=== PATIENT | male | born 1960 | race Caucasian/White ===

== ENCOUNTER → 2017-01-25 | Outpatient (CLI) | payer OTHER ==
--- NOTE | 2017-01-25 09:53 | CTL ---
EXAMINATION TYPE: CT Low Dose Lung DATE OF EXAM ORDERED: 01/25/2017 COMPARISON: None HISTORY: . Low Dose CT Lung Screening CT DLP: 75.[address] CTDI: 2.14 mGy IV CONTRAST USED: None. SCREENING VISIT: First visit COMPARISON: None. TECHNIQUE: Low dose computed tomography scan was performed through the chest at 1 millimeter thick se ctions and reconstructed images in the coronal plane at [address] DIAGNOSTIC QUALITY: Satisfactory FINDINGS: LUNG NODULES: Right lung: Solid nodule measuring 4.6 mm within the periphery of the right lower lobe image 219. Add itional right upper lobe pulmonary nodule measuring 5 mm image 125. Left lun.4 mm solid nodule left upper lobe image 112. Ill-defined margin suggested. No additional nodules identified. LUNGS: COPD: Severity: Mild Fibrosis: Severity:None Lymph nodes: None Other findings: None RIGHT PLEURAL SPACE: Effusion: None Calcification: None Thickening: None Pneumothorax: None LEFT PLEURAL SPACE: Effusion: None Calcification: None Thickening: None Pneumothorax: None HEART: Heart Size: Within normal limits Coronary calcification: Mild Pericardial effusion: None OTHER FINDINGS: Upper abdomen: No significant abnormality Bony thorax: Degenerative changes Supraclavicular region: No significant abnormalityOther: No significant abnormalityI IMPRESSION: Suspicious category 4B RECOMMENDATION: Further evaluation with PET/CT to exclude malignancy CT LUNG RAD: LUNG RAD CATEGORY 4B
== END | disposition home or self-care (01) ==
LOC: RADCTMAIN 09:08
PROVIDERS: ATTEND Family Medicine
DX: Z12.2 Encounter for screening for malignant neoplasm of respiratory organs (principal); F17.200 Nicotine dependence, unspecified, uncomplicated

== ENCOUNTER → 2017-02-06 | Outpatient (CLI) | payer OTHER | END | disposition home or self-care (01) | LOC: RADPETMAIN 08:07 | PROVIDERS: ATTEND Family Medicine | DX: R91.1 Solitary pulmonary nodule (principal) ==

== ENCOUNTER → 2017-02-13 | Outpatient (CLI) | payer OTHER ==
--- NOTE | 2017-02-13 12:38 | PE ---
EXAMINATION TYPE: PET CT fusion skull to thigh DATE OF EXAM: 02/13/2017 CLINICAL HISTORY: Solitary pulmonary nodule, abnormal recent CT. TECHNIQUE: Following the intravenous administration of 11.94 mCi of F-18 FDG, whole body images are performed from the skull base to the midthigh. Images are reviewed on the computer in the coronal, axial, and sagittal planes. Reconstructed rotating images are created on independent workstation and reviewed on the computer. A non-contrast CT is performed in conjunction with the PET scan. COMPARISON: Low-dose lung screening CT January 25, 2017. CT abdomen and pelvis July 22, 2011. FINDINGS: SKULL BASE AND NECK: There is nonspecific 1.1 x 0.9 cm lymph node in the left neck and axial image 3 8 at level of left hyoid bone with max SUV of 3.03. CHEST, MEDIASTINUM, AND HILAR REGION: There is background of mild to moderate emphysematous change wi th prominent in the lung apices. Corresponding to recent CT there is stable 8 x 5 mm nodule in the le ft upper lobe on axial image 85 without abnormal hypermetabolic uptake. Fishes hypermetabolic uptake is seen in the thorax. ABDOMEN AND PELVIS: No suspicious hypermetabolic uptake is seen in the abdomen or pelvis. OSSEOUS STRUCTURES: No suspicious hypermetabolic uptake is seen in osseous structures. OTHER CT: There are prominent but subcentimeter lymph nodes in the prevascular space, AP window, and pericarinal regions. Coronary artery calcification is present which is noted marker for coronary artery disease. Prominent multilevel facet arthropathy in the lower lumbar spine. There is multilevel spurring in the thoracolumbar spine. There is marked straightening of the thoracolumbar spine. There is multilevel v acuum disc phenomenon and disc space narrowing in the lumbar spine. There is left lateral hernia in the mid abdomen on axial image 177 containing fat and small mesenteri c vessels through the rectus muscle perhaps site of prior ostomy. Sutures near sigmoid rectal colon prior partial bowel resection in the pelvis on axial image 206 are noted. IMPRESSION: 1. No suspicious hypermetabolic uptake in thorax or 8 x 5 mm left upper lobe nodule. Advise CT follow -up in 6-12 months time as per 2017 modified Fleischner Society recommendations. 2. Nonspecific hypermetabolic 1.1 x 0.9 cm left neck lymph node. Advise contrast-enhanced neck CT cor relation and ENT referral.
== END | disposition home or self-care (01) ==
LOC: RADPETMAIN 09:54
PROVIDERS: ATTEND Family Medicine
DX: R91.1 Solitary pulmonary nodule (principal)
CPT/HCPCS: 78815; A9552

== ENCOUNTER → 2017-08-02 | Outpatient (CLI) | payer OTHER ==
--- NOTE | 2017-08-02 12:45 | CT ---
EXAMINATION TYPE: CT soft tissue neck w con DATE OF EXAM: 08/02/2017 HISTORY: Lt Neck Nodule COMPARISON: PET/CT February 13, 2017 CT DLP: 766 mGycm. Automated Exposure Control for Dose Reduction was Utilized. TECHNIQUE: CT scan of the neck is performed with IV Contrast, patient injected with 100 mL of Omnipa que 300, axial images are obtained, coronal and sagittal reformatted images are reviewed. FINDINGS: Airway: Mild to moderate underlying emphysematous change is present. Parotid/submandibular glands: No gross abnormality seen. Carotid/Vascular Structures: No significant plaque or stenosis at the carotid bulb level bilaterally Osseous Structures: There is mild to moderate disc space narrowing C3-C4, C5-C6, and C6-C7 levels wit h mild to moderate anterior spurring noted at latter 2 levels. Other: No suspicious greater than 1 cm neck adenopathy is seen. There are prominent but subcentimeter bilateral neck lymph nodes identified. Corresponding to PET/CT there is stable 7 x 7 mm lymph node a nterior to jugular and carotid vessels at level of hyoid bone axial image 39. IMPRESSION: Stable nonspecific subcentimeter left-sided neck lymph node. No new greater than 1 cm mas s or adenopathy clearly identified.
== END | disposition home or self-care (01) ==
LOC: RADCTMAIN 11:07
PROVIDERS: ATTEND Family Medicine
DX: R22.1 Localized swelling, mass and lump, neck (principal)
CPT/HCPCS: 70491; Q9967

== ENCOUNTER → 2018-06-10 | Outpatient (CLI) | payer OTHER ==
--- NOTE | 2018-06-10 10:26 | CT ---
EXAMINATION TYPE: CT chest w con DATE OF EXAM: 06/10/2018 COMPARISON: Prior chest CT low dose lung screening January 25, 2017 HISTORY: Previous abn exam CT DLP: 555 mGycm. Automated Exposure Control for Dose Reduction was Utilized. TECHNIQUE: CT scan of the thorax is performed following with IV Contrast, patient injected with 100 mL of Isovue 300. FINDINGS: LUNGS: Background mild to moderate underlying emphysematous change most prominent lung apices is rede monstrated. There is stable left upper lobe nodule axial image 29 and coronal image 52 measuring 4 x 4 millimeters current study axial image 29, stable or slightly diminished in size from prior study. T here is peripheral 4 x 3 mm right lower lobe nodule axial image 47 also slightly diminished in size f rom prior study. No new suspicious greater than 4 mm nodules or masses are evident. No pleural effusi on or pneumothorax is seen bilaterally. Mild to moderate central peribronchial wall thickening is pre sumed product of underlying COPD. MEDIASTINUM: There are no greater than 1 cm hilar or mediastinal lymph nodes. No cardiomegaly or pe ricardial effusion is seen. OTHER: Moderate multilevel spurring in the thoracic spine is present. There is nonspecific 9 mm hyper dense focus left hepatic lobe axial image 59 favoring benign etiology or flash filling hemangioma. Th is is not clearly seen on [address] IMPRESSION: 1. Mild to moderate emphysematous change with scattered nodules stable or diminished in size from steven or CT. No new suspicious nodules are seen. Findings are strongly favored postinflammatory.
== END | disposition home or self-care (01) ==
LOC: RADCTMAIN 08:05
PROVIDERS: ATTEND Family Medicine
DX: J43.9 Emphysema, unspecified (principal); R91.8 Other nonspecific abnormal finding of lung field
CPT/HCPCS: 71260; Q9967

== ENCOUNTER → 2020-08-13 | Outpatient (CLI) | payer MEDICARE ==
--- NOTE | 2020-08-13 09:44 | MR ---
EXAMINATION TYPE: MR iac wo/w con DATE OF EXAM: 08/13/2020 COMPARISON: None HISTORY: Acoustic nerve disorder, left-sided hearing loss TECHNIQUE: Multiplanar, multisequence images of the brain and brainstem is performed with small soxxs-po-pyne an d high resolution images through the internal auditory canals without and with IV contrast, utilizing 8.5 mL intravenous Gadavist . FINDINGS: Diffusion weighted images demonstrate no evidence of a recent infarct or other diffusion ab normality. There is no extra-axial fluid collection, there is some artifact present, some scattered periventricular hyperintensity is present on inversion recovery T2-weighted sequences, approximately 3-5 lesions. The ventricular system and cisternal spaces are normal in size and appearance. The bra in volume is age appropriate. 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 There is no cerebellopontine angle mass. No abnormal soft tissue or enhancement within the internal auditory canals The craniocervical junction appears within normal limits. Post contrast images demonstrate no abnormal enhancement. The dural venous sinuses appear patent. The visualized s inuses are remarkable for only mucoperiosteal thickening in the frontal sinus, ethmoid air cells, max illary and sphenoid sinuses, and the globes are intact. IMPRESSION: Mild mucosal disease in the paranasal sinuses. No internal auditory canal or cerebellopon jacy angle abnormality is evident. Nonspecific white matter demyelination of questionable clinical si gnificance, Thornwaldt cyst.
== END ==
LOC: RADMRIMAIN 08:05
PROVIDERS: ATTEND Otolaryngology
DX: J34.89 Other specified disorders of nose and nasal sinuses (principal)
CPT/HCPCS: 70553

== ENCOUNTER → 2020-09-10 | Outpatient (CLI) | payer MEDICARE ==
--- NOTE | 2020-09-10 14:19 | CTL ---
EXAMINATION TYPE: CT Low Dose Lung DATE OF EXAM ORDERED: 09/10/2020 HISTORY: Tobacco use. Lung cancer screening CT DLP: [address] CTDI: 3.3 mGy Automated exposure control for dose reduction was used. SCREENING VISIT: Subsequent follow-up COMPARISON: 01/25/2017 TECHNIQUE: Low dose computed tomography scan was performed through the chest at 1 mm thick sections a nd reconstructed images in the coronal plane at [address] DIAGNOSTIC QUALITY: Satisfactory FINDINGS: LUNG NODULES: Present, detailed below: Left lung: There is a new 0.5 cm nodule within the periphery of the upper medial left lung. Series 4 image 72. Previous left upper lobe nodule not apparent on the current exam. Right lung: Previous nodule appears smaller currently measures 0.3 cm in the periphery of the right u pper lung field. Series 4 image 121. LUNGS: COPD: Severity: Mild. Peribronchial thickening compatible some chronic bronchitis is present. Fibrosis: Severity: None Lymph nodes: None Other findings: None RIGHT PLEURAL SPACE: Effusion: None Calcification: None Thickening: None Pneumothorax: None LEFT PLEURAL SPACE: Effusion: None Calcification: None Thickening: None Pneumothorax: None HEART: Heart Size: Normal Coronary calcification: Minimal Pericardial effusion: None OTHER FINDINGS: Upper abdomen: Normal Bony thorax: Normal Supraclavicular region: Normal Other: Ascending thoracic aorta at the level the main pulmonary artery measures 3.6 cm. The main pul monary artery at the bifurcation measures 2.7 cm. IMPRESSION: Probably benign findings FOLLOW UP CT CHEST RECOMMENDATION: Follow up standard CT chest 6 months to reevaluate new left upper lobe lung nodule. CT LUNG RAD: 3
== END | disposition home or self-care (01) ==
LOC: RADCTMAIN 08:02
PROVIDERS: ATTEND Family Medicine
DX: Z12.2 Encounter for screening for malignant neoplasm of respiratory organs (principal); F17.210 Nicotine dependence, cigarettes, uncomplicated
CPT/HCPCS: 71271

== ENCOUNTER → 2022-01-01 | Outpatient (CLI) | payer MEDICARE ==
--- NOTE | 2022-01-01 14:13 | CTL ---
EXAMINATION TYPE: CT Low Dose Lung DATE OF EXAM ORDERED: 01/01/2022 HISTORY: History of smoking. Lung cancer screening CT DLP: 102.[address] CTDI: 2.9 mGy Automated exposure control for dose reduction was used. SCREENING VISIT: Follow-up screening visit COMPARISON: 09/10/2020 TECHNIQUE: Low dose computed tomography scan was performed through the chest at 1 mm thick sections a nd reconstructed images in multiple planes at 1 mm and [address] DIAGNOSTIC QUALITY: Satisfactory FINDINGS: LUNG NODULES: Present, detailed below: Prior pulmonary nodules are stable example includes: 3 mm right upper lobe image 99, series 4, right lower lobe 6 mm image 193, left upper lobe 5 mm image 98, and right upper lobe 4 mm image 54. LUNGS: COPD: Severity: Mild Fibrosis: Severity: None Lymph nodes: None Other findings: None RIGHT PLEURAL SPACE: Effusion: None Calcification: None Thickening: None Pneumothorax: None LEFT PLEURAL SPACE: Effusion: None Calcification: None Thickening: None Pneumothorax: None HEART: Heart Size: Normal Coronary Calcification: Small Pericardial Effusion: None OTHER FINDINGS: Upper abdomen: None Bony thorax: None Supraclavicular region: None Other: None IMPRESSION: 1. Stable scattered pulmonary nodules. 2. Mild to moderate COPD CT LUNG RAD AND CT CHEST RECOMMENDATION: Lung-Rad 2 Benign Appearance or Behavior: Continue annual sc reening with LDCT in 12 months. S Modifier (other clinically significant findings): None
== END | disposition home or self-care (01) ==
LOC: RADCTMAIN 13:01
PROVIDERS: ATTEND Nurse Practitioner Family
DX: Z12.2 Encounter for screening for malignant neoplasm of respiratory organs (principal); R91.8 Other nonspecific abnormal finding of lung field; J44.9 Chronic obstructive pulmonary disease, unspecified; Z87.891 Personal history of nicotine dependence
CPT/HCPCS: 71271

== ENCOUNTER → 2022-12-02 | Outpatient (CLI) | payer MEDICARE ==
--- NOTE | 2022-12-02 12:44 | CTL ---
EXAMINATION TYPE: CT Low Dose Lung DATE OF EXAM ORDERED: 12/02/2022 HISTORY: 62-year-old male Z87.891. Lung cancer screening. Current smoker, 45 pack-year history. CT DLP: [address] CTDI: 2.8 mGy Automated exposure control for dose reduction was used. SCREENING VISIT: 01/01/2022 COMPARISON: 01/01/2022 TECHNIQUE: Low dose computed tomography scan was performed through the chest with coronal and sagitta l reconstructions. CT DIAGNOSTIC QUALITY: Satisfactory FINDINGS: Heart normal size without pericardial effusion. Mild LAD and circumflex coronary artery calcification s are present. 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 Conventional chest branching anatomy. Scattered nonenlarged mediastinal lymph nodes remain unchanged. No thoracic lymphadenopathy by CT siz e criteria. Moderate centrilobular emphysema and some paraseptal emphysema in the visualized upper lungs. Mild di ffuse bronchial wall thickening. A number of 6 mm and smaller bilateral pulmonary nodules are redemonstrated, unchanged. However, there are five new pulmonary nodules in the left upper lobe (circled on the images). These r sebastien in size from 1.4 cm axial image 51 and 9 mm on axial image 110 down to 5 mm. Visualized upper abdomen shows no gross abnormality. Bones: DISH lower thoracic spine with moderate degenerative disc disease. IMPRESSION: 1. LungRADS Category 4B (very suspicious, >15% chance of malignancy). New pulmonary nodules in the le ft upper lobe measuring up to 1.4 cm. Consider further PET CT evaluation. 2. COPD with moderate emphysema and other stable 6 mm and smaller pulmonary nodules. CT LUNG RAD AND CT CHEST RECOMMENDATION: Lung-Rad 4B or 4X Very Suspicious: Follow-up Chest CT with o r without contrast or PET/CT and/or tissue sampling. PET/CT may be used when there is a > 8 mm solid component. S Modifier (other clinically significant findings): None
== END | disposition home or self-care (01) ==
LOC: RADCTMAIN 09:22
PROVIDERS: ATTEND Family Medicine
DX: Z12.2 Encounter for screening for malignant neoplasm of respiratory organs (principal); J43.9 Emphysema, unspecified; F17.210 Nicotine dependence, cigarettes, uncomplicated; R91.8 Other nonspecific abnormal finding of lung field
CPT/HCPCS: 71271

== ENCOUNTER → 2023-01-22 | Outpatient (CLI) | payer MEDICARE ==
--- NOTE | 2023-01-22 10:09 | PE ---
EXAMINATION TYPE: PET CT fusion skull to thigh DATE OF EXAM: 01/22/2023 CLINICAL INDICATION:Male, 62 years old with history of R91.1 R91.8; TECHNIQUE: Following the intravenous administration of 12 mCi of F-18 FDG, whole body images are pe rformed from the skull base to the midthigh. Images are reviewed on the computer in the coronal, axi al, and sagittal planes. Reconstructed rotating images are created on independent workstation and re viewed on the computer. A non-contrast CT is performed in conjunction with the PET scan. Glucose le janell 110 mg/dL CT DLP: 423.27 mGycm, Automated exposure control for dose reduction was used. COMPARISON: CT 12/02/2022 CT, 01/01/2022., PET/CT 02/13/2017, FINDINGS: Mediastinal SUV mean is 1.3. Hepatic parenchyma SUV mean is 1.6. SKULL BASE AND NECK: No suspicious radiotracer activity. CHEST, MEDIASTINUM, AND HILAR REGION: * Left upper lung elongated somewhat spiculated pulmonary nodule with mild FDG activity remaining at below background levels. These this measures up to 1.3 x 0.8 cm which is similar to prior CT, it is not present on 01/01/2022 CT. * More inferiorly in the left upper lobe nodular densities measuring up to 0.8 cm Max SUV 0.8. * 5 mm pulmonary nodules are scattered throughout the lungs which are below sensitivity for PET/CT. * No abnormal adenopathy or other areas of abnormal FDG activity. ABDOMEN AND PELVIS: No suspicious radiotracer activity. MUSCULOSKELETAL STRUCTURES: No suspicious radiotracer activity. OTHER CT: Mild atherosclerosis of the arterial vasculature. Moderate centrilobular emphysema changes. Fat-containing ventral wall hernias left upper quadrant and right upper quadrant. Fat-containing umb ilical hernia. Postsurgical changes to the sigmoid colon. Bilateral fatty changes to the inguinal can als. The appendix is normal. IMPRESSION: Left upper lobe pulmonary nodules with mild FDG activity above normal pulmonary parenchyma background . These are still below background mediastinal FDG activity. Given these are new from 2021. These rem ain concerning for malignancy versus chronic waxing and weaning granulomatous disease given nodules t hat have resolved on prior imaging. Consider short-term follow-up CT in [address] chest.
== END | disposition home or self-care (01) ==
LOC: RADPETMAIN 07:08
PROVIDERS: ATTEND Nurse Practitioner Family
DX: R91.8 Other nonspecific abnormal finding of lung field (principal)
CPT/HCPCS: 78815; A9552

== ENCOUNTER → 2023-05-19 | Outpatient (CLI) | payer MEDICARE ==
--- NOTE | 2023-05-19 13:33 | CT ---
EXAMINATION TYPE: CT chest w con DATE OF EXAM: 05/19/2023 COMPARISON: Most recent PET CT January 22, 2023 and older studies. HISTORY: lung nodule f/u CT DLP: 345 mGycm. Automated Exposure Control for Dose Reduction was Utilized. TECHNIQUE: CT scan of the thorax is performed following with IV Contrast, patient injected with 100 mL of Isovue 300. FINDINGS: LUNGS: Mild to moderate underlying emphysematous changes redemonstrated. Stable 1.3 x 0.7 cm left upp er lobe pulmonary nodule image 13 which did not show hypermetabolic uptake on recent PET CT. A few ad ditional smaller nodules are grossly stable all measuring under 5 mm in size particularly in the left upper lobe. No new or enlarging greater than 5 mm pulmonary nodules or masses. No pleural effusion o r pneumothorax seen bilaterally. MEDIASTINUM: There are no new greater than 1 cm hilar or mediastinal lymph nodes. No cardiomegaly o r pericardial effusion is seen. OTHER: Mild multilevel spurring in the thoracic spine redemonstrated. IMPRESSION: Stable scattered pulmonary nodules including largest left upper lobe nodule. No enlarging pulmonary nodules are present.
== END | disposition home or self-care (01) ==
LOC: RADCTMAIN 12:50
PROVIDERS: ATTEND Internal Medicine Critical Care Medicine
DX: R91.8 Other nonspecific abnormal finding of lung field (principal)
CPT/HCPCS: 71260; Q9967

== ENCOUNTER → 2023-09-03 | Outpatient (CLI) | payer MEDICARE | END | disposition home or self-care (01) | LOC: LABPAT 10:15 | PROVIDERS: ATTEND Orthopaedic Surgery | DX: Z01.812 Encounter for preprocedural laboratory examination (principal); M12.811 Other specific arthropathies, not elsewhere classified, right shoulder; Z22.322 Carrier or suspected carrier of Methicillin resistant Staphylococcus aureus | CPT/HCPCS: 87070 ==

== ENCOUNTER → 2023-09-29 | Outpatient (CLI) | payer BC, MEDICARE ==
--- NOTE | 2023-10-01 14:27 | MR ---
EXAMINATION TYPE: MR shoulder LT wo con DATE OF EXAM: 09/29/2023 COMPARISON: Outside bilateral shoulder x-rays August 02, 2023 HISTORY: Left shoulder pain, unable to lift arm for 4 months. TECHNIQUE: Multiplanar, multisequence imaging of the left shoulder is performed without contrast. FINDINGS: Rotator Cuff: Full-thickness retracted tear of the infraspinatus tendon. Increased signal and full-th ickness tear of the supraspinatus tendon. Thickened subscapularis tendon with surrounding fluid. Mode rate to severe atrophy of the supraspinatus and infraspinatus tendons. Moderate atrophy of the subsca pularis tendon. Acromioclavicular Joint: Moderate to severe narrowing and capsular hypertrophy. Moderate spurring. Lo ss of underlying fat plane. Glenohumeral Joint: Moderate size joint effusion. High riding humeral head suggests underlying instab ility. Labrum: The labrum appears grossly intact given limitation of non-arthrogram study. Biceps Tendon: The long head of biceps is dislocated anteromedially from normal location within bicip ital groove. The biceps anchor remains intact. Bone marrow signal: Subchondral cystic change anterior superior osseous glenoid. Additional subchondr al cystic change throughout the acromioclavicular joint. Other: No additional significant abnormality is appreciated. IMPRESSION: 1. Full-thickness retracted tears of the supraspinatus and infraspinatus tendons. Significant rotator cuff muscular atrophy. 2. Anterior medial dislocation of long head of biceps tendon. Suspect torn subscapularis tendon given this finding. 3. Fairly severe AC joint arthropathy. 4. High riding humeral head suggesting underlying instability. Moderate glenohumeral joint effusion.
== END | disposition home or self-care (01) ==
LOC: RADMRIMAIN 16:53
PROVIDERS: ATTEND Family Medicine
DX: M75.122 Complete rotator cuff tear or rupture of left shoulder, not specified as traumatic (principal); M19.012 Primary osteoarthritis, left shoulder; M67.814 Other specified disorders of tendon, left shoulder; M25.412 Effusion, left shoulder

== ENCOUNTER → 2024-05-24 | Outpatient (CLI) | payer MEDICARE ==
[2024-05-24 10:00] LABS: African American GFR (CKD) >90 (>60 ml/min/1.73 sqM); Blood Urea Nitrogen 15 mg/dL (9-20); Non-African American GFR(CKD) >90 (>60 ml/min/1.73 sqM)
--- NOTE | 2024-05-24 10:27 | CT ---
EXAMINATION TYPE: CT chest w con CT DLP: 508 mGycm, Automated exposure control for dose reduction was used. DATE OF EXAM: 05/24/2024 10:19 AM COMPARISON: CT chest 05/19/2023, PET/CT 1123, CT low-dose lung 12/02/2022, 01/01/2022 CLINICAL INDICATION:Male, 63 years old with history of R91.8 ABN IMAGING; PHH, pulmonary nodules TECHNIQUE: Multiple axial images were obtained through the chest following the administration of 100 cc of Isovue 300. . Coronal reformats reviewed. FINDINGS: LUNGS/ PLEURA: No pleural effusion, pneumothorax, focal consolidation. Mild centrilobular and parasep jessica emphysematous changes. Stable left upper lobe spiculated 1.1 cm pulmonary nodule (series 4, image 13). Stable posterior left upper lobe 4 mm pulmonary nodule (series 4, image 16). Stable right upper lobe 3 mm pulmonary nodule (series 4, image 30). Stable peripheral right lower lobe 6 mm pulmonary n odule (series 4, image 46). No new or enlarging pulmonary nodules. AIRWAY: Patent and unremarkable.. HEART: Size within normal limits.No pericardial effusion. MEDIASTINUM: No evidence of adenopathy. VASCULATURE: No aortic aneurysm. MUSCULOSKELETAL: No acute osseous abnormalities. Multilevel degenerative changes of the spine. SOFT TISSUES/LYMPH NODES: Unremarkable. LOWER NECK: No significant findings. UPPER ABDOMEN: No significant findings. IMPRESSION: Stable scattered pulmonary nodules with no new or enlarging pulmonary nodules. [facility], , 05/24/2024 10:25 AM
== END | disposition home or self-care (01) ==
LOC: RADCTMAIN 09:04
PROVIDERS: ATTEND Internal Medicine Critical Care Medicine
DX: R91.8 Other nonspecific abnormal finding of lung field (principal)
CPT/HCPCS: 82565; 84520; 71260; 36415; Q9967